=== PATIENT | female | born 1995 | race Caucasian/White ===

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

== ENCOUNTER 2017-01-02 10:03 | Inpatient (IN) | payer MEDICAID, OTHER ==
[2017-01-02] VITALS (36 sets, daily range): BP systolic 103–144; BP diastolic 53–93
[~2017-01-02] VITALS: Ht 157.5 cm; Wt 75.0 kg
[2017-01-02] MEDS ORDERED: FERR325T3 PO (11:00)
[2017-01-02 11:13] LABS: MEAN CORPUSCULAR HEMOGLOBIN 28.4 pg (27.0-33.0); RED CELL DISTRIBUTION WIDTH 15.2 % (11.5-14.5); WHITE BLOOD COUNT 12.9 K/mm3 (4.0-10.0)
[2017-01-02] MEDS ORDERED: PROMETHAZINE INJ 25 MG/ML VIAL (J2550) IV ONE (11:15)
[2017-01-02] MEDS ORDERED: BUTORPHANOL 2 MG/ML INJ (J0595) IV ONE (11:15)
--- NOTE | 2017-01-02 12:17 | HPE ---
DATE OF ADMISSION: 01/02/2017 Prabha is a 21-year-old, 1, para 0, at 41 weeks gestation, with an estimated date of confinement (EDC) of 12/26/2016, based on last normal menstrual period, confirmed by first trimester ultrasound. She presents to labor and delivery today after evaluation in the office for an add-on labor check, complained of rupture of membranes. She reports that her membranes ruptured a small amount of clear fluid at approximately 0745 hours. She reports that contractions became increasingly more uncomfortable about every 2 minutes following the rupture of membranes. She does report some scant bloody show and her fetus has been active. care was initiated at [facility] in the first trimester. course has been complicated by a history of asthma with rare use of rescue inhaler, history of depression, stopped medications times one year and vasovagal responses with lab work when blood is drawn. OBSTETRICAL HISTORY: Primigravida. OB LABS: O+, antibody screen negative, rubella immune, VDRL nonreactive. Hepatitis B surface antigen negative, HIV negative. Hepatitis C antibody negative. Gonorrhea and chlamydia negative. She had a repeat urine culture that demonstrated no growth. She did not have any genetic screening labs performed. Gestational diabetic screening 125 and GBS is negative. PAST MEDICAL HISTORY: Asthma with rare inhaler, seasonal allergies. No history of surgery. FAMILY HISTORY: Diabetes, thyroid, hypertension, and thyroid cancer. The patient is single. The father of the baby is involved and at bedside, as well as her mother is present for support. She is a nonsmoker. Denies alcohol and drug use. There is no history of any sexually transmitted infections and she denies history of abuse, physical, sexual and emotional. ALLERGIES: NO KNOWN DRUG ALLERGIES. CURRENT MEDICATIONS: Include: - ferrous sulfate 325 mg by mouth twice a day - vitamin OBJECTIVE: Temperature 98.2, pulse 114, respirations 18, blood pressure (BP) 94/51. She is crying and moaning with her contractions. heart rate is 130 with moderate variability, positive accelerations and no decelerations. Sterile speculum exam performed in the office noted to be grossly ruptured, positive Nitrazine, positive ferning. Sterile vaginal exam: 2 cm dilated, 80% effaced, and -1 station at that time. Abdomen is gravid, cephalic presentation. Estimated weight 7-1/2 to 8 pounds. ASSESSMENT: Intrauterine at 41 weeks gestation. heart rate category 1. Premature rupture of membranes likely active labor. PLAN: Admit patient to labor and delivery. Out of bed ad kiran. Clear liquid diet. The patient desires some intravenous (IV) pain medication at this time to cope with her labor and eventually will request an epidural. I do anticipate continued labor progress. I would consider augmentation with IV Pitocin if necessary. I do anticipate a spontaneous vaginal delivery. [facility]
[2017-01-02] MEDS ORDERED: LACTATED RINGER'S 1000 ML IV ONE (13:45)
[2017-01-02] MEDS ORDERED: LR 1,000 ML IV SCH (14:00)
[2017-01-02] MEDS ORDERED: FENTANYL 2MCG/ML ROPIVACAINE 0.2% NACL 250 ML CADD As Ordered ONE (14:36)
[2017-01-02] MEDS: ACETAMINOPHEN 500 MG TAB PO PRN (14:49)
[2017-01-02] MEDS ORDERED: ONDANSETRON 4MG/2ML VIAL (J2405) IV PRN ×2 (15:45→20:15)
[2017-01-02] MEDS ORDERED: diphenhydrAMINE INJ 50MG/ML VIAL (J1200) IV PRN (15:45)
[2017-01-02] MEDS ORDERED: ePHEDrine SULFATE 25 MG/5 ML(5MG/ML) SYRINGE IV PRN (15:45)
[2017-01-02] MEDS ORDERED: NALOXONE INJ 0.4 MG/1 ML VIAL (J2310) IV PRN (15:45)
[2017-01-02] MEDS ORDERED: REFRIGERATOR IV KEYS XX PRN (15:45)
[2017-01-02] MEDS ORDERED: EPIDURAL/PCA KEYS XX PRN (15:45)
[2017-01-02] MEDS ORDERED: FENTANYL/ROPIVACAINE/NACL CADD 250 ML EPIDURAL SCH (15:45)
[2017-01-02] MEDS ORDERED: EPIDURAL COMMENT XX SCH (15:45)
[2017-01-02] MEDS ORDERED: OXYTOCIN 30 UNITS IN 0.9% NaCl 500ML IV BAG (J2590) As Ordered ONE (19:34)
[2017-01-02 19:51] LABS: CORD GAS ABE V -4.2; CORD GAS HCO3 V 20.1 MEQ/L; CORD GAS O2 SAT V 45.8 %; CORD GAS PCO2 V 34.7 mmHg; CORD GAS PH V 7.381 UNITS; CORD GAS PO2 V 19.6 mmHg; CORD GAS SBC V 19.9 MEQ/L; CORD GAS TCO2 V 21.2 MEQ/L
[2017-01-02 19:54] LABS: CORD GAS ABE A -4.7; CORD GAS HCO3 A 22.4 MEQ/L; CORD GAS O2 SAT A < 15.0 %; CORD GAS PCO2 A 48.8 mmHg; CORD GAS PH A 7.279 UNITS; CORD GAS PO2 A 10.8 mmHg; CORD GAS TCO2 A 23.9 MEQ/L
[2017-01-02] MEDS ORDERED: OXYTOCIN DRIP 30 UNITS in APPROPRIATE DILUENT 1 EA IV SCH (20:03)
[2017-01-02] MEDS ORDERED: MEASLES,MUMPS,RUBELLA VACCINE INJ (MMR-II) (90707) SC SCH (20:15)
[2017-01-02] MEDS ORDERED: RHOGAM 300 MCG (1500 IU) INJ (J2790) IM SCH (20:15)
[2017-01-02] MEDS ORDERED: DOCUSATE SODIUM 100 MG CAP PO PRN (20:15)
[2017-01-02] MEDS ORDERED: METHYLERGONOVINE MALEATE 0.2 MG TAB PO PRN (20:15)
[2017-01-02] MEDS ORDERED: DIBUCAINE 1% OINTMENT 30GM TOP PRN (20:15)
--- NOTE | 2017-01-02 20:21 | DN ---
DATE: 01/02/2017 Prabha is a 1, para 1-0-0-1 now who was admitted to labor and delivery in active labor. She did utilize an epidural for her labor coping and her labor progressed physiologically. She reached full dilation at 19:26. She pushed to a normal spontaneous vaginal delivery of a live female infant in OA position with restitution to LOT position at 19:36. There was no nuchal cord. The shoulders delivered spontaneously and the corpus immediately followed. The was placed on maternal abdomen crying and active. Her mouth and nares were bulb suctioned. Cord gases and cord blood were obtained. A spontaneous expulsion of an intact placenta with three-vessel cord by Noble mechanism was at 19:42. Uterine hemostasis was achieved with IV Pitocin rapid infusion and uterine fundal massage. Estimated blood loss 350 mL. Perineum and vagina were inspected and noted to have a first-degree midline laceration bilateral labial lacerations. They were repaired with 3-0 Rapide in the usual fashion. [place] female weighed 7 pounds 10 ounces, 3454 grams, 8 and 8. The placenta will be sent to pathology due to maternal temperature and the diagnosis of chorioamnionitis with foul smelling smelling amniotic fluid. Mom will be given IV Unasyn to treat this. At the close of delivery and instrument counts, needle counts and lap counts were correct and verified. ANGIE
[2017-01-02] MEDS: AMPICILLIN SOD/SULBACTAM SOD 3 GM in D5W MINI-BAG PLUS 100 ML IV SCH (20:23)
[2017-01-02] MEDS: IBUPROFEN 800 MG TAB PO PRN (20:32)
[2017-01-03] MEDS: IBUPROFEN 800 MG TAB PO PRN ×2 (03:52→13:51)
[2017-01-03] MEDS: AMPICILLIN SOD/SULBACTAM SOD 3 GM in D5W MINI-BAG PLUS 100 ML IV SCH ×4 (03:52→20:36)
[2017-01-03 05:51] VITALS: BP 104/61
[2017-01-03 07:38] LABS: MEAN CORPUSCULAR HEMOGLOBIN 28.7 pg (27.0-33.0); MEAN CORPUSCULAR HGB CONC 32.9 g/dl (32.0-36.5); MEAN CORPUSCULAR VOLUME 87.2 fl (80.0-96.0); RED CELL DISTRIBUTION WIDTH 15.9 % (11.5-14.5)
[2017-01-03] MEDS: PRENATAL VITAMIN TAB PO SCH (08:42)
[2017-01-03 19:11] VITALS: BP 139/69
[2017-01-04] MEDS: IBUPROFEN 800 MG TAB PO PRN (01:13)
[2017-01-04] MEDS: AMPICILLIN SOD/SULBACTAM SOD 3 GM in D5W MINI-BAG PLUS 100 ML IV SCH ×2 (02:25→07:50)
[2017-01-04 06:00] VITALS: BP 137/63
[2017-01-04] MEDS: PRENATAL VITAMIN TAB PO SCH (07:51)
[2017-01-04] MEDS ORDERED: ACET50TA PO (09:36)
[2017-01-04] MEDS ORDERED: IBUP-1114 PO (09:36)
[2017-01-04] MEDS: ACETAMINOPHEN 500 MG TAB PO PRN (10:28)
== END 2017-01-04 14:02 | disposition home or self-care (01) | DRG 560 ==
LOC: M LDI 10:03 → M OBS 21:29
PROVIDERS: ADMIT Advanced Practice Midwife; ATTEND Advanced Practice Midwife
PROC: 10E0XZZ Delivery of Products of Conception, External Approach (ICD-10-PCS; principal; 2017-01-02)
PROC: 0HQ9XZZ Repair Perineum Skin, External Approach (ICD-10-PCS; 2017-01-02)
DX: O42.113 Preterm premature rupture of membranes, onset of labor more than 24 hours following rupture, third trimester (principal); O48.0 Post-term pregnancy; O42.02 Full-term premature rupture of membranes, onset of labor within 24 hours of rupture; Z37.0 Single live birth; Z3A.41 41 weeks gestation of pregnancy; O70.0 First degree perineal laceration during delivery

== ENCOUNTER → 2017-08-05 | Outpatient (REF) | payer OTHER ==
[~2017-08-05] MED LIST changes: +FERR325T3 PO; +IBUP-1114 PO
[2017-08-05 19:53] LABS: MEAN CORPUSCULAR HEMOGLOBIN 28.3 pg (27.0-33.0); MEAN CORPUSCULAR HGB CONC 32.6 g/dl (32.0-36.5); MEAN CORPUSCULAR VOLUME 86.9 fl (80.0-96.0); RED CELL DISTRIBUTION WIDTH 14.1 % (11.5-14.5); WHITE BLOOD COUNT 10.1 10^3/uL (4.0-10.0)
[2017-08-05 20:14] LABS: ALBUMIN/GLOBULIN RATIO 1.11 (1.00-1.93); ALKALINE PHOSPHATASE 99 U/L (45-117); ALT/SGPT 31 U/L (12-78); ANION GAP 9 MEQ/L (8-16); AST/SGOT 16 U/L (15-37); BILIRUBIN,TOTAL 0.3 MG/DL (0.2-1.0); BLOOD UREA NITROGEN 14 MG/DL (7-18); CALCIUM LEVEL 9.3 MG/DL (8.5-10.1); CARBON DIOXIDE LEVEL 25 MEQ/L (21-32); CHLORIDE LEVEL 106 MEQ/L (98-107); CREATININE FOR GFR 0.76 MG/DL (0.55-1.02); FREE T4 0.95 NG/DL (0.78-1.33); GLUCOSE, FASTING 85 MG/DL (70-105); POTASSIUM SERUM 3.9 MEQ/L (3.5-5.1); SODIUM LEVEL 140 MEQ/L (136-145); TOTAL PROTEIN 7.6 GM/DL (6.4-8.2)
== END ==
LOC: M SFHCADAM 15:30
PROVIDERS: ATTEND Physician Assistant Medical
DX: R00.0 Tachycardia, unspecified (principal)

== ENCOUNTER → 2018-05-29 | Outpatient (CLI) | payer BC | LOC: M ADAMS 13:53 | DX: S83.92XA Sprain of unspecified site of left knee, initial encounter (principal); X58.XXXA Exposure to other specified factors, initial encounter; Y92.9 Unspecified place or not applicable | CPT/HCPCS: 73564 ==

== ENCOUNTER → 2018-06-23 | Outpatient (REF) | payer BC | LOC: M LAB REF 18:31 | DX: Z12.4 Encounter for screening for malignant neoplasm of cervix (principal) | CPT/HCPCS: G0123 ==

== ENCOUNTER → 2018-10-20 | Outpatient (REF) | payer OTHER | LOC: M SFHCADAM 10:29 | DX: J02.9 Acute pharyngitis, unspecified (principal) ==

== ENCOUNTER → 2018-12-14 | Outpatient (REF) | payer BC, OTHER ==
[~2018-12-14] MED LIST changes: -ACET50TA PO; +MAPA500T2 PO
[2018-12-14 19:23] LABS: APPEARANCE, URINE HAZY (CLEAR); BACTERIA, URINE AUTO 1+ (NEGATIVE); BILIRUBIN, URINE AUTO NEGATIVE (NEGATIVE); BLOOD, URINE BLOOD 2+ (NEGATIVE); COLOR, URINE YELLOW (YELLOW); GLUCOSE, URINE (UA) AUTO NEGATIVE (NEGATIVE); KETONE, URINE AUTO NEGATIVE (NEGATIVE); LEUKOCYTE ESTERASE, URINE AUTO NEGATIVE (NEGATIVE); NITRITE, URINE AUTO NEGATIVE (NEGATIVE); PROTEIN, URINE AUTO NEGATIVE (NEGATIVE); RBC, URINE AUTO 1 /HPF (0-3); SPECIFIC GRAVITY URINE AUTO 1.009 (1.002-1.035); SQUAMOUS EPITHELIAL CELL UR AU 7 /HPF (0-6); UROBILINOGEN, URINE AUTO 0.2 mg/dL (0.0-2.0); WBC, URINE AUTO 2 /HPF (0-3)
== END ==
LOC: M SFHCADAM 18:03
PROVIDERS: ATTEND Physician Assistant Medical
DX: R10.84 Generalized abdominal pain (principal); N91.2 Amenorrhea, unspecified

== ENCOUNTER → 2018-12-16 | Outpatient (CLI) | payer OTHER ==
--- NOTE | 2018-12-17 04:17 | REP ---
Clinical: Generalized abdominal pain. Technique: Upright view of the chest with supine and upright views of the abdomen and pelvis. Findings: Frontal upright view of the chest demonstrates no acute cardiopulmonary process or free air below the diaphragm to suspect pneumoperitoneum. Supine and upright views of the abdomen and pelvis demonstrate nonspecific bowel gas pattern without obstruction or perforation. No organomegaly. No abnormal calcifications. Skeletal structures normal for age. Impression: Nonspecific bowel gas pattern. Electronically Signed by Kwame Nielson MD 12/17/2018 04:09 A
== END ==
LOC: M ADAMS 14:56
PROVIDERS: ATTEND Physician Assistant Medical
DX: R10.84 Generalized abdominal pain (principal)

== ENCOUNTER → 2019-02-22 | Outpatient (CLI) | payer OTHER ==
[2019-02-22 13:33] LABS: BASO # 0.1 10^3/uL (0.0-0.2); BASO % 0.6 % (0.0-1.0); EOS # 0.3 10^3/uL (0.0-0.50); EOS % 2.6 % (0.0-3.0); HEMATOCRIT 40.2 % (36.0-47.0); LYMPH # 2.2 10^3/uL (1.5-6.5); MEAN CORPUSCULAR HEMOGLOBIN 29.1 pg (27.0-33.0); MEAN CORPUSCULAR HGB CONC 32.3 g/dl (32.0-36.5); MEAN CORPUSCULAR VOLUME 90.1 fl (80.0-96.0); MONO # 0.6 10^3/uL (0.0-0.8); MONO % 5.6 % (0.0-5.0); NEUTROPHILS # 7.4 10^3/uL (1.8-7.7); NEUTROPHILS % 69.7 % (36.0-66.0); PLATELET COUNT, AUTOMATED 279 10^3/uL (150-450); RED BLOOD COUNT 4.46 10^6/uL (4.00-5.40); WHITE BLOOD COUNT 10.6 10^3/uL (4.0-10.0)
[2019-02-22 14:24] LABS: HEPATITIS C VIRUS ABY INDEX 0.1 INDEX (<0.8); HIV 1&2 SCREEN CENTAUR NEGATIVE (NEGATIVE); RUBELLA IgG QUALITATIVE IMMUNE (IMMUNE)
[2019-02-22 14:40] LABS: CHLAMYDIA DNA AMPLIFICATION NEGATIVE (NEGATIVE); GC DNA AMPLIFICATION NEGATIVE (NEGATIVE)
== END ==
LOC: M SMT 10:03
PROVIDERS: ATTEND Advanced Practice Midwife
DX: Z34.81 Encounter for supervision of other normal pregnancy, first trimester (principal); Z3A.01 Less than 8 weeks gestation of pregnancy

== ENCOUNTER → 2019-05-19 | Outpatient (CLI) | payer OTHER ==
--- NOTE | 2019-05-19 20:42 | REP ---
Clinical: Anatomical evaluation. Comparison: None . Findings: Examination demonstrates a single live intrauterine in transverse (head to maternal right) presentation. motion is identified by technologist. Placenta is noted posterior and grade air zero without evidence for placenta previa or abruption. Amniotic fluid volume is normal. Cervix measures 4.9 cm in length and appears closed. Nuchal cord cannot be excluded Gestational age by LMP 19 weeks 1 day with KIESHA 10/12/2019 . Gestational age by current measurements 19 weeks 3 days with KIESHA 10/10/2019 . FHR equals 147 beats per minute. BPD 4.4 cm 19 weeks 3 days HC 16.5 cm 19 weeks 1 day AC 14.2 cm 19 weeks 4 days FL 3.1 cm 19 weeks 3-day HL 2.9 cm 19 weeks 3 days HC/AC ratio 1.16 Estimated weight 295 grams ( 61st percentile). Anatomical assessment demonstrates normal structures including cranium, choroid plexus, cavum, cerebellum/posterior fossa, stomach, cord insertion/three-vessel cord, kidneys/bladder, spine, and extremities. Limited evaluation of the facial features, lungs, four-chamber heart/ventricular outflow tracts, and diaphragm. Impression: Single live intrauterine in transverse lie demonstrating appropriate interval growth. 2. Nuchal cord cannot be excluded. 3. Limited evaluation as described above may warrant reevaluation and follow-up. Electronically Signed by Kwame Nielson MD 05/19/2019 08:33 P
== END ==
LOC: M RAD 13:32
PROVIDERS: ATTEND Advanced Practice Midwife
DX: Z36.89 Encounter for other specified antenatal screening (principal); Z3A.19 19 weeks gestation of pregnancy

== ENCOUNTER → 2019-06-16 | Outpatient (CLI) | payer OTHER ==
[~2019-06-16] MED LIST changes: +IBUP80TA PO; +IRON27TA2 PO
--- NOTE | 2019-06-17 04:52 | REP ---
Clinical: Anatomical evaluation. Comparison: 05/19/2019 . Findings: Examination demonstrates a single live intrauterine in transverse (head to maternal right) presentation. motion is identified by technologist. Placenta is noted posterior and grade zero without evidence for placenta previa or abruption. Amniotic fluid volume is normal. Cervix measures 5.1 cm in length and appears closed. No evidence for nuchal cord. Gestational age by LMP 23 weeks 1 day with KIESHA 10/12/2019 . Gestational age by current measurements 23 weeks 0 days with KIESHA 10/13/2019 . FHR equals 149 beats per minute. Estimated weight 525 grams ( 33rd percentile). Anatomical assessment demonstrates normal structures including cranium, choroid plexus, cavum, cerebellum/posterior fossa, facial features, lungs, four-chamber heart/ventricular outflow tracts, diaphragm, stomach, cord insertion/three-vessel cord, kidneys/bladder, spine, and extremities. Bilateral lateral ventricles are borderline dilated measuring 9.3 and 10.6 mm and may warrant followup examination. Impression: 1. Single live intrauterine in transverse lie demonstrating appropriate interval growth. 2. Mildly dilated lateral ventricles may warrant followup. Remainder of the anatomical assessment is complete and normal. Electronically Signed by Kwame Nielson MD 06/17/2019 04:43 A
== END ==
LOC: M RAD 14:58
PROVIDERS: ATTEND Advanced Practice Midwife
DX: Z34.82 Encounter for supervision of other normal pregnancy, second trimester (principal); Z3A.23 23 weeks gestation of pregnancy

== ENCOUNTER → 2019-07-13 | Outpatient (CLI) | payer OTHER ==
[~2019-07-13] MED LIST changes: -IBUP80TA PO; -IRON27TA2 PO
[2019-07-13 13:38] LABS: BASO % 0.4 % (0.0-1.0); EOS # 0.2 10^3/uL (0.0-0.5); EOS % 2.5 % (0.0-3.0); HEMATOCRIT 30.7 % (36.0-47.0); HEMOGLOBIN 10.2 g/dl (12.0-15.5); LYMPH # 1.6 10^3/uL (1.5-5.0); MEAN CORPUSCULAR HGB CONC 33.2 g/dl (32.0-36.5); MEAN CORPUSCULAR VOLUME 90.3 fl (80.0-96.0); MONO # 0.4 10^3/uL (0.0-0.8); MONO % 5.1 % (0.0-5.0); NEUTROPHILS # 5.4 10^3/uL (1.5-8.5); NEUTROPHILS % 70.4 % (36.0-66.0); PLATELET COUNT, AUTOMATED 172 10^3/uL (150-450); WHITE BLOOD COUNT 7.7 10^3/uL (4.0-10.0)
== END ==
LOC: M LAB 11:12
PROVIDERS: ATTEND Advanced Practice Midwife
DX: Z34.83 Encounter for supervision of other normal pregnancy, third trimester (principal); Z36.89 Encounter for other specified antenatal screening

== ENCOUNTER → 2019-07-14 | Outpatient (CLI) | payer OTHER ==
[~2019-07-14] MED LIST changes: +IBUP80TA PO; +IRON27TA2 PO
--- NOTE | 2019-07-14 15:29 | REP ---
OB ULTRASOUND: Real-time sonographic evaluation of the gravid uterus performed. There is a single living intrauterine gestation, estimated gestational age 27 weeks 1 day, EDC 10/12/2019. Today's measurements indicate appropriate growth. BPD 72 mm = 28 weeks 6 days, 86th percentile HC 263 mm = 28 weeks 4 days, 83rd percentile AC 240 mm = 28 weeks 2 days, 75th percentile FL 52 mm = 27 weeks 5 days, 65th percentile HC/AC ratio 1.10, within normal range. Estimated weight 1190 grams, 71st percentile. Cervix is closed and measures 5.2 cm in length. heart rate 136 beats per minute. Amniotic fluid within normal limits, CECELIA 16.8 within normal range of 9.5 to 22.6. S/D ratio 3.14 and RI 0.68, within normal range. SEEN/GROSSLY UNREMARKABLE Lateral ventricles yes Posterior fossa yes Upper lip yes Four-chamber heart yes LVOT yes RVOT no Stomach yes Cord insertion yes Three vessel cord yes Kidneys yes Bladder yes Spine yes The lateral ventricles are mildly dilated, the atrium of the right lateral ventricle 11 mm and left 14 mm. Followup is recommended. position: Vertex. Placenta: Posterior and grade 1 with no previa or abruption. Electronically Signed by Lee Edwards MD 07/14/2019 03:39 P
== END ==
LOC: M RAD 13:24
PROVIDERS: ATTEND Advanced Practice Midwife
DX: Z34.82 Encounter for supervision of other normal pregnancy, second trimester (principal); Z36.89 Encounter for other specified antenatal screening; Z3A.27 27 weeks gestation of pregnancy

== ENCOUNTER → 2019-09-09 | Outpatient (CLI) | payer OTHER ==
[~2019-09-09] MED LIST changes: -IBUP80TA PO; -IRON27TA2 PO
--- NOTE | 2019-09-09 13:18 | REP ---
Clinical: well-being Comparison: 07/14/2019 . Findings: Examination demonstrates a single live intrauterine in cephalic presentation. motion is identified by technologist. Placenta is noted posterior and grade I without evidence for placenta previa or abruption. Amniotic fluid volume is normal. No evidence for nuchal cord. Gestational age by LMP 35 weeks 2 days with KIESHA 10/12/2019 . Gestational age by current measurements 36 weeks 1 day with KIESHA 10/06/2019 . FHR equals 124 beats per minute. Estimated weight 3089 grams ( 80th percentile). Biophysical profile score: 8/8 Amniotic fluid index: 7.9 cm (7.8 - 24.9) Umbilical cord SD ratio: 2.68 (2.00 - 3.00) Impression: 1. Single live intrauterine in cephalic presentation demonstrating appropriate interval growth. 2. Biophysical profile score and amniotic fluid volume are normal Electronically Signed by Kwame Nielson MD 09/09/2019 01:09 P
== END ==
LOC: M RAD 12:22
PROVIDERS: ATTEND Advanced Practice Midwife
DX: O28.3 Abnormal ultrasonic finding on antenatal screening of mother (principal)

== ENCOUNTER → 2019-09-17 | Outpatient (REF) | payer OTHER | LOC: M LAB REF 16:56 | PROVIDERS: ATTEND Advanced Practice Midwife | DX: Z36.85 Encounter for antenatal screening for Streptococcus B (principal); O43.893 Other placental disorders, third trimester; Z3A.36 36 weeks gestation of pregnancy ==

== ENCOUNTER → 2019-09-22 | Outpatient (CLI) | payer OTHER | LOC: M LAB 13:28 | PROVIDERS: ATTEND Advanced Practice Midwife | DX: O43.893 Other placental disorders, third trimester (principal); Z3A.36 36 weeks gestation of pregnancy ==

== ENCOUNTER 2019-09-30 22:10 | Outpatient (CLI) | payer OTHER ==
[~2019-09-30] VITALS: Ht 157.5 cm; Wt 87.8 kg
[2019-09-30] MEDS ORDERED: IRON27TA2 PO (22:33)
[2019-09-30 22:37] VITALS: BP 117/64
--- NOTE | 2019-11-15 18:00 | IPNPDOC ---
Obstetrical Progress Note Date of Service Sep 30, 2019 Subjective 24-year-old 2, at 38 weeks 2 days estimated gestational age, presents with complaints of contractions Objective Vital signs are stable and afebrile Assessment Variability: Moderate Decelerations: None Heart Rate Tracing: Category I Sterile Vaginal Examination Dilation: 1cm Effacement (%): 50% Station: -3 Assessment and Plan Age: 24 : 2 Term: 1 Status: Reassuring Additional Comments 24-year-old 2, para 1 at 38 weeks 2 days estimated gestational age with contractions, not in active labor, Reassuring status -Home with labor precautions and kick count instructions. - Follow-up at next OB visit BARRY EDWARDS MD. Nov 15, 2019 18:00
== END 2019-09-30 23:24 | disposition home or self-care (01) ==
LOC: M LDO 22:10
PROVIDERS: ATTEND Obstetrics & Gynecology
DX: O47.1 False labor at or after 37 completed weeks of gestation (principal); Z3A.38 38 weeks gestation of pregnancy

== ENCOUNTER 2019-10-09 14:56 | Inpatient (IN) | payer OTHER ==
[~2019-10-09] VITALS: Ht 157.5 cm; Wt 83.4 kg
[~2019-10-09 14:56] MED LIST changes: +IRON27TA2 PO
[2019-10-09 15:16] VITALS: BP 105/57
[2019-10-09] MEDS ORDERED: miSOPROStol 50 MCG 1/2 TAB (S0191) PV ONE (15:30)
[2019-10-09 16:08] VITALS: BP 110/64
[2019-10-09 16:24] LABS: HEMATOCRIT 33.6 % (36.0-47.0); HEMOGLOBIN 11.2 g/dl (12.0-15.5); MEAN CORPUSCULAR HEMOGLOBIN 30.9 pg (27.0-33.0); MEAN CORPUSCULAR HGB CONC 33.3 g/dl (32.0-36.5); MEAN CORPUSCULAR VOLUME 92.8 fl (80.0-96.0); PLATELET COUNT, AUTOMATED 146 10^3/uL (150-450); RED BLOOD COUNT 3.62 10^6/uL (4.00-5.40); WHITE BLOOD COUNT 8.6 10^3/uL (4.0-10.0)
[2019-10-09] MEDS ORDERED: miSOPROStol 50 MCG 1/2 TAB (S0191) PO ONE (16:30)
[2019-10-09 16:55] VITALS: BP 97/57
[2019-10-09] MEDS ORDERED: PROMETHAZINE INJ 25 MG/ML VIAL (J2550) IV ONE (22:00)
[2019-10-09] MEDS ORDERED: BUTORPHANOL 2 MG/ML INJ (J0595) IV ONE (22:00)
--- NOTE | 2019-10-09 23:36 | HPE ---
DATE OF ADMISSION: 10/09/2019 REASON FOR ADMISSION: Induction of labor. HISTORY OF PRESENT ILLNESS: Mrs. Rivera is a 24-year-old 2, para 1 who presents at 39 weeks and 4 days estimated gestational age by her first trimester ultrasound, here for induction of labor. Her course has been remarkable for mild ventriculomegaly, as well as hyper-coiled umbilical cord. She had a consult at the center and has been followed with antepartum testing and serial ultrasounds. PAST MEDICAL HISTORY: 1. History of depression. 2. Asthma. PAST SURGICAL HISTORY: She has had left knee surgery. PAST OBSTETRICAL HISTORY: She is 2, para 1. She has had one term vaginal delivery, proven at 7 pounds 10 ounces. MEDICATIONS INCLUDES: Albuterol ALLERGIES:: She has no known drug allergies. SOCIAL HISTORY: Denies alcohol, tobacco or drug use in . PHYSICAL EXAMINATION: Vital signs: Stable. She is afebrile. She has category one rate tracing. General appearance: Well appearing, in no acute distress. Lungs: Clear to auscultation bilaterally. Cardiovascular: Heart regular rate and rhythm. Abdomen: Gravid, nontender. A 3100 grams. Cervix: 150 and -2. LABORATORY: Her labs O+, antibody screen is negative. Rubella is immune. RPR is nonreactive. Hepatitis surface antigen is negative. HIV is negative. Hepatitis C is nonreactive. Chlamydia and gonorrhea screens are negative. She had a normal one hour Glucometer. She is GBS negative. ASSESSMENT: 1. Ms. Rivera is a 24-year-old 2, para 1 at 39 and 4 weeks' gestation here for induction of labor. 2. Reassuring status. PLAN: 1. Admit to Labor delivery, CBC, RPR, type and screen. 2. The patient has been admitted in regards to medications, procedure performed in Labor delivery. She has been verbally consented for emergency surgery, blood products anesthesia desires to proceed admission. 3. Will initiate her induction with a 50 mcg of oral mesoprostol.
[2019-10-10] MEDS ORDERED: PROMETHAZINE INJ 25 MG/ML VIAL (J2550) IV ONE (05:00)
[2019-10-10] MEDS ORDERED: BUTORPHANOL 2 MG/ML INJ (J0595) IV ONE (05:00)
[2019-10-10] MEDS: LR 1,000 ML IV SCH ×2 (06:55→10:34)
[2019-10-10] MEDS ORDERED: OXYTOCIN DRIP 30 UNITS in IV 1 EA IV SCH ×2 (07:00→18:00)
[2019-10-10 07:21] VITALS: BP 133/70
[2019-10-10 07:39] VITALS: BP 123/78
[2019-10-10] MEDS ORDERED: FENTANYL 2MCG/ML ROPIVACAINE 0.2% IN 0.9% NACL 100ML IVBAG As Ordered ONE (12:03)
[2019-10-10] MEDS ORDERED: FENTANYL/ROPIVACAINE/NACL BAG 100 ML EPIDURAL SCH (13:30)
[2019-10-10] MEDS ORDERED: EPIDURAL/PCA KEYS XX PRN (13:30)
[2019-10-10] MEDS ORDERED: REFRIGERATOR IV KEYS XX PRN (13:30)
[2019-10-10] MEDS ORDERED: diphenhydrAMINE INJ 50MG/ML VIAL (J1200) IV PRN (13:30)
[2019-10-10] MEDS ORDERED: LACTATED RINGER'S 1000 ML IV PRN (13:30)
[2019-10-10] MEDS ORDERED: EPIDURAL COMMENT XX SCH (13:30)
[2019-10-10] MEDS ORDERED: NALOXONE INJ 0.4 MG/1 ML VIAL (J2310) IV PRN (13:30)
[2019-10-10] MEDS ORDERED: ePHEDrine SULFATE 25 MG/5 ML(5MG/ML) SYRINGE IV PRN (13:30)
[2019-10-10] MEDS ORDERED: ONDANSETRON 4MG/2ML VIAL (J2405) IV PRN (13:30)
[2019-10-10] MEDS ORDERED: METHYLERGONOVINE MALEATE 0.2 MG TAB PO PRN (17:45)
[2019-10-10] MEDS ORDERED: ACETAMINOPHEN 500 MG TAB PO PRN (17:45)
[2019-10-10] MEDS ORDERED: RHOGAM 300 MCG (1500 IU) INJ (J2790) IM SCH (17:45)
[2019-10-10] MEDS ORDERED: MOM 30ML SUSPENSION UDC PO PRN (17:45)
[2019-10-10] MEDS ORDERED: DOCUSATE SODIUM 100 MG CAP PO PRN (17:45)
[2019-10-10] MEDS ORDERED: ACETAMINOPHEN TAB 650MG DOSE (2X325MG) PO PRN (17:45)
[2019-10-10] MEDS ORDERED: MEASLES,MUMPS,RUBELLA VACCINE INJ (MMR-II) (90707) SC SCH (17:45)
[2019-10-10] MEDS ORDERED: DIBUCAINE 1% OINTMENT 30GM TOP PRN (17:45)
[2019-10-10] MEDS ORDERED: IBUPROFEN 600 MG TAB PO PRN (17:45)
[2019-10-10] MEDS ORDERED: ANUSOL HC CREAM 30GM TOP PRN (17:45)
--- NOTE | 2019-10-10 18:01 | DN ---
DATE OF DELIVERY: 10/10/2019 TIME OF : 1647 hours. GENDER: Male. SCORES: 8 and 9. WEIGHT: Was 8 pounds 2 ounces or 3690 grams. LACERATIONS: none. ANESTHESIA: Epidural. COUNTS: Five laparotomy sponges accounted for prior to and after delivery. DELIVERY NOTE: On 10/10/2019, Mrs. Rivera, a 24-year 2, now para 2 had a spontaneous vaginal delivery of a live born male , scores 8 and 9, weight was 8 pounds 2 ounces, or 3690 grams, time of was 1647 hours. Infant was delivered over an intact perineum followed by delivery of anterior and posterior shoulders and corpus. Infant was handed to mom with a good cry. Cord was clamped times two and was cut by the father of the baby under my direction. Cord blood was then obtained. Placenta was drained and delivered grossly intact. A premixed bag of 500 mL of normal saline with 30 units of Pitocin was bolused along with uterine massage until the uterus was firm. On inspection, cervix, vagina, and perineum was grossly intact and hemostatic. Mom and baby recovered in stable condition. Couple has decided to name their son
[2019-10-10 19:52] VITALS: BP 118/64
[2019-10-11] MEDS: IBUPROFEN 800 MG TAB PO PRN ×2 (01:23→21:08)
[2019-10-11 06:05] VITALS: BP 106/64
[2019-10-11] MEDS: PRENATAL VITAMINS CHEWABLE TABLET PO SCH (09:11)
--- NOTE | 2019-10-11 17:29 | IPNPDOC ---
Progress Note Date of Service: Oct 11, 2019 Day#: 1 Progress Note SUBJECT: She has been ambulating, voiding spontaneously without issue and gina ating regular diet. Has no complaints with pain at this time. OBJECTIVE: VITAL SIGNS: Within normal limits, afebrile. Alert and oriented times three. Breath sounds clear to auscultation. Heart rate: Regular rate and rhythm, no murmurs, rubs or gallops. Abdomen: Fundus firm at U-2. Soft, NTTP. Moderate lochia. ASSESSMENT: Day 1 PLAN: 1. Continue supportive nursing care. 2. Anticipate discharge to home tomorrow. VS, I&O, 24H, Fishbone Vital Signs/I&O Vital Signs Date Time Temp Pulse Resp B/P (MAP) Pulse Ox O2 Delivery O2 Flow Rate FiO2 10/11/19 06:05 98.0 84 18 106/64 (78) I&O- Last 24 Hours up to 6 AM 10/11/19 06:00 Intake Total 3119.3 ml Output Total 800 ml Balance 2319.3 ml EDGAR TAYLOR CNM Oct 11, 2019 17:29
[2019-10-11 18:00] VITALS: BP 123/69
[2019-10-12 05:42] VITALS: BP 120/78
[2019-10-12] MEDS ORDERED: IBUP80TA PO (07:32)
[2019-10-12] MEDS: PRENATAL VITAMINS CHEWABLE TABLET PO SCH (09:46)
== END 2019-10-12 10:50 | disposition home or self-care (01) | DRG 560 ==
LOC: M LDI 14:56 → M OBS 10-10 19:29
PROVIDERS: ADMIT Obstetrics & Gynecology; ATTEND Obstetrics & Gynecology
PROC: 3E0P7GC Introduction of Other Therapeutic Substance into Female Reproductive, Via Natural or Artificial Opening (ICD-10-PCS; 2019-10-09)
PROC: 10E0XZZ Delivery of Products of Conception, External Approach (ICD-10-PCS; principal; 2019-10-10)
DX: O36.8330 Maternal care for abnormalities of the fetal heart rate or rhythm, third trimester, not applicable or unspecified (principal); Z3A.39 39 weeks gestation of pregnancy; Z37.0 Single live birth

== ENCOUNTER → 2022-01-08 | Outpatient (REF) | payer OTHER, BC ==
[~2022-01-08] MED LIST changes: +IBUP80TA PO
== END ==
LOC: M SFHCWAGY 18:49
PROVIDERS: ATTEND Specialist
DX: Z12.4 Encounter for screening for malignant neoplasm of cervix (principal)

== ENCOUNTER → 2022-02-13 | Outpatient (REF) | payer OTHER, BC ==
[2022-02-13 17:04] LABS: GC DNA AMPLIFICATION NEGATIVE (NEGATIVE)
== END ==
LOC: M LAB REF 15:03
PROVIDERS: ATTEND Physician Assistant
DX: R30.0 Dysuria (principal); R05.9 Cough, unspecified; R53.83 Other fatigue

== ENCOUNTER 2022-06-04 16:57 | Emergency (ER) | payer BC, OTHER ==
[~2022-06-04] VITALS: Ht 157.5 cm; Wt 83.3 kg
[2022-06-04 16:58] VITALS: BP 120/79
[2022-06-04] MEDS ORDERED: FLUO20CA22 (17:44)
[2022-06-04] MEDS ORDERED: BUSP1TAB (17:44)
[2022-06-04] MEDS ORDERED: ZOLP5TAB (17:44)
[2022-06-04] MEDS ORDERED: BUSP10TA (17:44)
[2022-06-04 18:13] LABS: BASO # 0.1 10^3/uL (0.0-0.2); BASO % 0.8 % (0.0-1.0); EOS # 0.3 10^3/uL (0.0-0.5); EOS % 3.9 % (0.0-3.0); HEMATOCRIT 39.3 % (36.0-47.0); HEMOGLOBIN 12.8 g/dl (12.0-15.5); LYMPH # 1.6 10^3/uL (1.5-5.0); MEAN CORPUSCULAR HEMOGLOBIN 30.4 pg (27.0-33.0); MEAN CORPUSCULAR HGB CONC 32.6 g/dl (32.0-36.5); MEAN CORPUSCULAR VOLUME 93.3 fl (80.0-96.0); MONO # 0.6 10^3/uL (0.0-0.8); MONO % 6.4 % (2.0-8.0); NEUTROPHILS # 6.2 10^3/uL (1.5-8.5); NEUTROPHILS % 70.6 % (36.0-66.0); PLATELET COUNT, AUTOMATED 252 10^3/uL (150-450); RED BLOOD COUNT 4.21 10^6/uL (4.00-5.40); WHITE BLOOD COUNT 8.8 10^3/uL (4.0-10.0)
[2022-06-04 18:51] LABS: BLOOD UREA NITROGEN 13 MG/DL (7-18); CALCIUM LEVEL 9.1 MG/DL (8.5-10.1); CARBON DIOXIDE LEVEL 24 MEQ/L (21-32); CHLORIDE LEVEL 111 MEQ/L (98-107); CREATININE FOR GFR 0.77 MG/DL (0.55-1.30); GLOMERULAR FILTRATION RATE > 60.0 (>60); GLUCOSE, FASTING 83 MG/DL (70-100); HCG, SERUM QUANTITATIVE < 1.0 MIU/ML; POTASSIUM SERUM 4.1 MEQ/L (3.5-5.1); SODIUM LEVEL 143 MEQ/L (136-145)
[2022-06-04 21:04] LABS: T UPTAKE 33 % (30-39); THYROXINE (T4) 9.1 UG/DL (4.5-12.0)
== END 2022-06-04 21:03 | disposition home or self-care (01) ==
LOC: M ED 16:57
DX: R42 Dizziness and giddiness (principal); K64.9 Unspecified hemorrhoids; J45.909 Unspecified asthma, uncomplicated; Z91.02 Food additives allergy status; Z79.899 Other long term (current) drug therapy

== ENCOUNTER → 2022-09-02 | Outpatient (CLI) | payer OTHER ==
[~2022-09-02] MED LIST changes: +BUSP10TA; +BUSP1TAB; +FLUO20CA22; +ZOLP5TAB
== END ==
LOC: M ADAMS 11:55
PROVIDERS: ATTEND Physician Assistant Medical
DX: M54.16 Radiculopathy, lumbar region (principal)

== ENCOUNTER → 2022-09-16 | Outpatient (REF) | payer OTHER | LOC: M SFHCADAM 16:31 | PROVIDERS: ATTEND Physician Assistant Medical | DX: N39.3 Stress incontinence (female) (male) (principal) ==

== ENCOUNTER → 2022-11-22 | Outpatient (REF) | payer OTHER ==
[2022-11-22 16:26] LABS: URINE PREG TEST NEGATIVE (NEGATIVE)
[2022-11-22 16:33] LABS: BASO # 0.1 10^3/uL (0.0-0.2); BASO % 0.7 % (0.0-1.0); EOS # 0.5 10^3/uL (0.0-0.5); EOS % 6.6 % (0.0-3.0); HEMATOCRIT 37.8 % (36.0-47.0); HEMOGLOBIN 12.3 g/dl (12.0-15.5); LYMPH # 1.7 10^3/uL (1.5-5.0); LYMPH % 24.2 % (24.0-44.0); MEAN CORPUSCULAR HEMOGLOBIN 30.8 pg (27.0-33.0); MEAN CORPUSCULAR HGB CONC 32.5 g/dl (32.0-36.5); MEAN CORPUSCULAR VOLUME 94.7 fl (80.0-96.0); MONO # 0.5 10^3/uL (0.0-0.8); MONO % 6.3 % (2.0-8.0); NEUTROPHILS # 4.4 10^3/uL (1.5-8.5); NEUTROPHILS % 61.9 % (36.0-66.0); PLATELET COUNT, AUTOMATED 230 10^3/uL (150-450); RED BLOOD COUNT 3.99 10^6/uL (4.00-5.40); WHITE BLOOD COUNT 7.2 10^3/uL (4.0-10.0)
[2022-11-22 17:00] LABS: MONO REFLEX EBV VCA IgM NEGATIVE (NEGATIVE)
[2022-11-22 17:01] LABS: ALBUMIN 3.8 G/DL (3.2-5.2); ALKALINE PHOSPHATASE 69 U/L (46-116); ALT/SGPT 36 U/L (7.0-40); AST/SGOT 25 U/L (<34); BILIRUBIN,TOTAL 0.2 MG/DL (0.3-1.2); BLOOD UREA NITROGEN 16 MG/DL (9-23); CALCIUM LEVEL 9.3 MG/DL (8.5-10.1); CARBON DIOXIDE LEVEL 21 MMOL/L (20-31); CHLORIDE LEVEL 106 MMOL/L (98-107); CREATININE FOR GFR 0.82 MG/DL (0.55-1.30); GLOMERULAR FILTRATION RATE > 60.0 (>60); GLUCOSE, FASTING 73 MG/DL (60-100); POTASSIUM SERUM 3.7 MMOL/L (3.5-5.1); SODIUM LEVEL 138 MMOL/L (136-145); THYROID STIMULATING HORMONE 0.739 uIU/ML (0.55-4.78); TOTAL PROTEIN 6.8 G/DL (5.7-8.2)
[2022-11-22 17:02] LABS: FREE T4 1.14 NG/DL (0.89-1.76)
[2022-11-22 18:20] LABS: HEMOGLOBIN A1c 4.3 % (4.0-6.0)
[2022-11-25 18:07] LABS: EBV VIRAL CAPSID AG IgM <36.0 U/mL (0.0-35.9)
== END ==
LOC: M SFHCADAM 15:05
PROVIDERS: ATTEND Physician Assistant
DX: R53.83 Other fatigue (principal); E16.2 Hypoglycemia, unspecified

== ENCOUNTER → 2022-12-26 | Outpatient (REF) | payer OTHER | LOC: M SFHCADAM 15:33 | PROVIDERS: ATTEND Physician Assistant Medical | DX: Z53.9 Procedure and treatment not carried out, unspecified reason (principal) ==

== ENCOUNTER → 2023-01-01 | Outpatient (REF) | payer OTHER | LOC: M SFHCADAM 10:35 | PROVIDERS: ATTEND Physician Assistant Medical | DX: R11.0 Nausea (principal); R68.81 Early satiety ==

== ENCOUNTER → 2023-01-16 | Outpatient (CLI) | payer OTHER ==
[~2023-01-16] MED LIST changes: +E-Z-GAS II EFFERVESCENT PACKET (SODIUM BICARB./CITRIC ACID/SIMETHICONE) As Ordered ONE; +E-Z-HD 98% w/w 340GM SUSP BTL As Ordered ONE; +E-Z-PAQUE 96% w/w SUSP 176GM BTL As Ordered ONE
== END ==
LOC: M RAD 09:49
PROVIDERS: ATTEND Physician Assistant Medical
DX: R11.0 Nausea (principal); R68.81 Early satiety; K21.9 Gastro-esophageal reflux disease without esophagitis

== ENCOUNTER → 2023-01-20 | Outpatient (REF) | payer OTHER ==
[~2023-01-20] MED LIST changes: -E-Z-GAS II EFFERVESCENT PACKET (SODIUM BICARB./CITRIC ACID/SIMETHICONE) As Ordered ONE; -E-Z-HD 98% w/w 340GM SUSP BTL As Ordered ONE; -E-Z-PAQUE 96% w/w SUSP 176GM BTL As Ordered ONE
== END ==
LOC: M SFHCADAM 09:18
PROVIDERS: ATTEND Physician Assistant Medical
DX: R11.0 Nausea (principal); R14.0 Abdominal distension (gaseous)

== ENCOUNTER 2023-03-03 19:56 | Emergency (ER) | payer OTHER ==
[~2023-03-03] VITALS: Ht 157.5 cm; Wt 73.3 kg
[2023-03-03 19:56] VITALS: BP 116/72
[2023-03-03] MEDS ORDERED: SUMA25TA3 (20:04)
[2023-03-03] MEDS ORDERED: TOPI100T9 (20:04)
[2023-03-03] MEDS ORDERED: LEVOTAB10 (20:04)
[2023-03-03] MEDS ORDERED: GUAN1TAB16 (20:04)
[2023-03-03] MEDS ORDERED: OMEP40CA5 (20:04)
== END 2023-03-03 22:50 | disposition left against medical advice (07) ==
LOC: M ED 19:56
DX: Z53.21 Procedure and treatment not carried out due to patient leaving prior to being seen by health care provider (principal)

== ENCOUNTER → 2024-07-27 | Outpatient (REF) | payer OTHER ==
[~2024-07-27] MED LIST changes: +FLUO-365; -FLUO20CA22; +GUAN1TAB16; +LEVOTAB10; +OMEP40CA5; +SUMA25TA3; +TOPI100T9
== END ==
LOC: M LAB REF 12:14
PROVIDERS: ATTEND Physician Assistant Medical
DX: R52 Pain, unspecified (principal)

== ENCOUNTER → 2024-09-13 | Outpatient (REF) | payer OTHER | LOC: M LAB REF 16:46 | PROVIDERS: ATTEND Physician Assistant Medical | DX: B34.9 Viral infection, unspecified (principal) ==

== ENCOUNTER 2025-02-11 16:03 | Emergency (ER) | payer OTHER ==
[~2025-02-11] VITALS: Ht 157.5 cm; Wt 88.0 kg
[~2025-02-11 16:03] MED LIST changes: -TERB250T91
[2025-02-11] MEDS ORDERED: TERB250T91 (16:33)
[2025-02-11 17:36] LABS: BASO # 0.1 10^3/uL (0.0-0.2); BASO % 0.5 % (0.0-1.0); EOS # 0.3 10^3/uL (0.0-0.5); EOS % 2.8 % (0.0-3.0); HEMATOCRIT 41.3 % (36.0-47.0); HEMOGLOBIN 13.8 g/dl (12.0-15.5); LYMPH # 1.6 10^3/uL (1.5-5.0); MEAN CORPUSCULAR HEMOGLOBIN 29.7 pg (27.0-33.0); MEAN CORPUSCULAR HGB CONC 33.4 g/dl (32.0-36.5); MEAN CORPUSCULAR VOLUME 88.8 fl (80.0-96.0); MONO # 0.7 10^3/uL (0.0-0.8); MONO % 5.7 % (2.0-8.0); NEUTROPHILS # 8.7 10^3/uL (1.5-8.5); NEUTROPHILS % 76.6 % (36.0-66.0); PLATELET COUNT, AUTOMATED 306 10^3/uL (150-450); RED BLOOD COUNT 4.65 10^6/uL (4.00-5.40); WHITE BLOOD COUNT 11.4 10^3/uL (4.0-10.0)
[2025-02-11 18:01] LABS: BLOOD UREA NITROGEN 14 MG/DL (9-23); CALCIUM LEVEL 9.3 MG/DL (8.5-10.1); CARBON DIOXIDE LEVEL 22 MMOL/L (20-31); CHLORIDE LEVEL 106 MMOL/L (98-107); CK-MB VALUE MASS < 1.0 NG/ML (<3.6); CREATININE FOR GFR 0.64 MG/DL (0.55-1.30); GLOMERULAR FILTRATION RATE > 60.0 (>60); GLUCOSE, FASTING 89 MG/DL (60-100); POTASSIUM SERUM 4.4 MMOL/L (3.5-5.1); SODIUM LEVEL 139 MMOL/L (136-145)
[2025-02-11 18:03] LABS: CPK CREATINE PHOSPHOKINASE 65 U/L (34-145); MB/CK RELATIVE INDEX 1.53 (< OR =4)
[2025-02-11 18:05] LABS: HCG, SERUM QUALITATIVE NEGATIVE (NEGATIVE)
[2025-02-11 21:48] VITALS: BP 117/73; TEMP 97.9; O2SAT 98
[2025-02-11 22:04] LABS: LIPASE 35 U/L (12-53)
[2025-02-11 22:06] LABS: ALKALINE PHOSPHATASE 75 U/L (35-104); ALT/SGPT 38 U/L (7.0-40); AST/SGOT 22 U/L (<34); BILIRUBIN,DIRECT 0.1 MG/DL (<0.4); BILIRUBIN,TOTAL 0.4 MG/DL (0.3-1.2); TOTAL PROTEIN 7.3 G/DL (5.7-8.2)
== END 2025-02-11 21:50 | disposition home or self-care (01) ==
LOC: EDBD 16:03 → M ED 16:03
DX: R55 Syncope and collapse (principal); J45.909 Unspecified asthma, uncomplicated; G43.909 Migraine, unspecified, not intractable, without status migrainosus; F10.10 Alcohol abuse, uncomplicated; F17.200 Nicotine dependence, unspecified, uncomplicated; Z91.02 Food additives allergy status; Z79.899 Other long term (current) drug therapy

== ENCOUNTER → 2025-02-11 | Outpatient (REF) | payer OTHER ==
[~2025-02-11] MED LIST changes: +TERB250T91
== END ==
LOC: M SFHCADAM 14:58
PROVIDERS: ATTEND Physician Assistant Medical
DX: Z53.9 Procedure and treatment not carried out, unspecified reason (principal)

== ENCOUNTER → 2025-03-02 | Outpatient (REF) | payer OTHER ==
[~2025-03-02] MED LIST changes: +TERB250T91; +TOPI-257; -TOPI100T9
[2025-03-02 18:00] LABS: ALBUMIN 3.8 G/DL (3.2-5.2); ALKALINE PHOSPHATASE 88 U/L (35-104); ALT/SGPT 33 U/L (7.0-40); AST/SGOT 21 U/L (<34); BILIRUBIN,DIRECT < 0.1 MG/DL (<0.4); BILIRUBIN,TOTAL 0.2 MG/DL (0.3-1.2)
== END ==
LOC: M SFHCADAM 17:08
PROVIDERS: ATTEND Physician Assistant Medical
DX: B35.4 Tinea corporis (principal)

== ENCOUNTER → 2025-06-23 | Outpatient (REF) | payer OTHER ==
[2025-06-25 13:08] LABS: HPV APTIMA Not Detected (Not Detected)
== END ==
LOC: M SFHCWAGY 13:15
PROVIDERS: ATTEND Specialist
DX: Z12.4 Encounter for screening for malignant neoplasm of cervix (principal); R87.610 Atypical squamous cells of undetermined significance on cytologic smear of cervix (ASC-US)
CPT/HCPCS: 87624; G0123

== ENCOUNTER → 2025-06-24 | Outpatient (CLI) | payer OTHER | LOC: M PLAIMG 07:03 | PROVIDERS: ATTEND Physician Assistant Medical | DX: R29.6 Repeated falls (principal); R41.89 Other symptoms and signs involving cognitive functions and awareness ==

== ENCOUNTER → 2025-08-11 | Outpatient (REF) | payer OTHER ==
[~2025-08-11] MED LIST changes: -ZOLP5TAB; +ZOLP5TAB9
[2025-08-11 14:51] LABS: BASO # 0.1 10^3/uL (0.0-0.2); BASO % 0.5 % (0.0-1.0); EOS # 0.4 10^3/uL (0.0-0.5); EOS % 4.2 % (0.0-3.0); LYMPH # 1.8 10^3/uL (1.5-5.0); LYMPH % 18.3 % (24.0-44.0); MONO # 0.6 10^3/uL (0.0-0.8); MONO % 5.8 % (2.0-8.0); NEUTROPHILS # 6.9 10^3/uL (1.5-8.5); NEUTROPHILS % 70.9 % (36.0-66.0); PLATELET COUNT, AUTOMATED 288 10^3/uL (150-450)
[2025-08-11 15:00] LABS: ERYTHROCYTE SEDIMENTATION RATE 33 mm/hr (0-20)
[2025-08-11 15:13] LABS: ESTIMATED AVERAGE GLUCOSE 97.0 MG/DL (60-110)
[2025-08-11 15:24] LABS: ALT/SGPT 23 U/L (7.0-40); AST/SGOT 20 U/L (<34); CALCIUM LEVEL 9.0 MG/DL (8.5-10.1); CARBON DIOXIDE LEVEL 24 MMOL/L (20-31); CHLORIDE LEVEL 106 MMOL/L (98-107); CREATININE FOR GFR 0.76 MG/DL (0.55-1.30); GLOMERULAR FILTRATION RATE > 90.0 (>60); IRON (FE) 61 UG/DL (50-170); PERCENT SATURATION 22.4 % (13.2-45.0); POTASSIUM SERUM 4.2 MMOL/L (3.5-5.1); SODIUM LEVEL 141 MMOL/L (136-145)
[2025-08-11 15:25] LABS: FREE T4 1.08 NG/DL (0.89-1.76); THYROID PEROXIDASE ANTIBODY 30 U/ML (<60.0)
[2025-08-11 15:26] LABS: TOTAL 25(OH) VITAMIN D 23.3 NG/ML (20.0-100.0); VITAMIN B12 LEVEL 556 PG/ML (211-911)
== END ==
LOC: M SFHCADAM 10:06
PROVIDERS: ATTEND Physician Assistant Medical
DX: J45.20 Mild intermittent asthma, uncomplicated (principal); R29.6 Repeated falls; R41.89 Other symptoms and signs involving cognitive functions and awareness

== ENCOUNTER 2025-10-18 11:31 | Day surgery (SDC) | payer OTHER ==
[~2025-10-18] VITALS: Ht 157.5 cm; Wt 88.9 kg
[~2025-10-18 11:31] MED LIST changes: +ACET1TAB55 PO; +VENTAER INH
[2025-10-18] MEDS ORDERED: LR 1,000 ML IV SCH ×2 (12:05→14:20)
[2025-10-18] MEDS ORDERED: MIDAZOLAM INJ 2 MG/2 ML VIAL As Ordered ONE (12:47)
[2025-10-18] MEDS ORDERED: dexAMETHasone 4 MG/ML 1 ML VIAL As Ordered ONE (12:47)
[2025-10-18] MEDS ORDERED: ROCURONIUM BROMIDE 50MG/5ML VIAL As Ordered ONE (12:47)
[2025-10-18] MEDS ORDERED: KETOROLAC 30 MG/ML 1 ML VIAL As Ordered ONE (12:47)
[2025-10-18] MEDS ORDERED: HYDROmorphone HCL 2 MG/ML 1 ML VIAL As Ordered ONE (12:47)
[2025-10-18] MEDS ORDERED: LIDOCAINE 2% 100 MG/5 ML SDV (FOR ANES.) As Ordered ONE (12:47)
[2025-10-18] MEDS ORDERED: ONDANSETRON 4MG/2ML VIAL As Ordered ONE (12:47)
[2025-10-18] MEDS ORDERED: ACETAMINOPHEN 1000MG/100ML IV BAG As Ordered ONE (12:48)
[2025-10-18] MEDS ORDERED: SUGAMMADEX SODIUM 200 MG/2 ML VIAL As Ordered ONE (12:48)
[2025-10-18] MEDS ORDERED: IBUP600T42 PO (14:10)
[2025-10-18] MEDS ORDERED: HYDROMORPHONE HCL 0.5 MG/0.5 ML SYRINGE IV PRN (14:20)
[2025-10-18] MEDS ORDERED: OXYC1TAB23 PO (14:20)
[2025-10-18] MEDS: ONDANSETRON 4MG/2ML VIAL IV PRN (15:11)
[2025-10-18 16:02] VITALS: BP 133/74; TEMP 97.2; O2SAT 97
== END 2025-10-18 16:24 | disposition home or self-care (01) ==
LOC: M SDC 11:31
PROVIDERS: ATTEND Specialist
DX: Z30.2 Encounter for sterilization (principal); K21.9 Gastro-esophageal reflux disease without esophagitis; F41.9 Anxiety disorder, unspecified; F32.A Depression, unspecified; R51.9 Headache, unspecified; J45.909 Unspecified asthma, uncomplicated; Z79.51 Long term (current) use of inhaled steroids; Z79.899 Other long term (current) drug therapy; F17.200 Nicotine dependence, unspecified, uncomplicated
CPT/HCPCS: 58661; 81025; 88302; J0131; J0665; J1100; J1171; J1885; J2250; J2405; J2765; J3010